=== PATIENT | female | born 1970 | race Asian ===

== ENCOUNTER 2021-09-04 15:24 | Emergency (ER) | payer SELFPAY ==
[~2021-09-04] VITALS: Ht 160 cm; Wt 59.1 kg
[2021-09-04 15:36] VITALS: TEMP 97.5
[2021-09-04 16:20] LABS: BASO % 0.3 % (0.0-2.0); EOS # 0.3 K/mm3 (0.0-0.7); GRAN # 5.6 K/mm3 (1.4-6.5); GRAN % 59.6 % (42.2-75.2); HEMATOCRIT 39.8 % (37.0-47.0); HEMOGLOBIN 13.7 g/dl (12.5-16.0); LYMPH # 2.7 K/mm3 (1.2-3.4); LYMPH % 29.2 % (20.0-51.0); MEAN CELL VOLUME 82 fl (80.0-100.0); MEAN CORPUSCULAR HEMOGLOBIN 28 pg (27-31); MEAN CORPUSCULAR HGB CONC 34 g/dl (33.0-37.0); MEAN PLATELET VOLUME 10.5 fl (7.4-10.4); MONO # 0.7 K/mm3 (0.1-0.6); MONO % 7.7 % (1.7-9.3); PLATELET COUNT 332 K/mm3 (130-400); RED BLOOD COUNT 4.88 M/mm3 (4.10-5.30); REDCELL DISTRIBUTION WIDTH-CV 12.9 % (11.5-14.5)
[2021-09-04 16:36] LABS: COLLECTION METHOD CLEAN CATCH
[2021-09-04 16:51] LABS: ALBUMIN 3.8 gm/dL (3.5-5.0); BILIRUBIN,TOTAL 0.3 mg/dL (0.2-1.2); CALCIUM 8.8 mg/dL (8.4-10.2); CREATININE, serum 0.72 mg/dL (0.57-1.11); POTASSIUM 3.3 mmol/L (3.5-4.5); TOTAL PROTEIN 7.7 gm/dL (6.2-8.1)
[2021-09-04 17:13] LABS: MUCOUS Present (NOT PRESENT); PH 5 (5-8); URINE APPEARANCE Hazy (CLEAR/HAZY); URINE BACTERIA None Seen /hpf (NONE SEEN); URINE BILIRUBIN Negative (NEGATIVE); URINE BLOOD Negative (NEGATIVE); URINE COLOR Yellow (YELLOW); URINE GLUCOSE Negative (NEGATIVE); URINE KETONE Negative (NEGATIVE); URINE LEUKOCYTE ESTERASE Negative (NEGATIVE); URINE NITRATE Negative (NEGATIVE); URINE PROTEIN(semi-quant) 1+ (NEGATIVE); URINE RBC 0-2 /hpf (0-2); URINE UROBILINOGEN Negative (NEGATIVE)
[2021-09-04] MEDS ORDERED: CATAPRES 0.1MG0.1 MG PO (17:33)
[2021-09-04 17:42] VITALS: BP 170/84; PULSE 80
== END 2021-09-04 17:42 | disposition home or self-care (01) ==
LOC: COL.ER 15:24
PROVIDERS: Family Medicine
DX: I10 Essential (primary) hypertension (principal); Z79.02 Long term (current) use of antithrombotics/antiplatelets; Z79.899 Other long term (current) drug therapy; Z28.310 Unvaccinated for COVID-19